=== PATIENT | male | born 1980 | race Caucasian/White ===

== ENCOUNTER 2018-02-10 17:47 | Emergency (ER) | payer MEDICAID ==
[~2018-02-10] VITALS: Ht 188 cm; Wt 88.5 kg
[2018-02-10] MEDS ORDERED: PIPERACILLIN-TAZOB 3.375GM 100 ML IV ONE (19:15)
[2018-02-10] MEDS ORDERED: KETOROLAC TROMETH 30 MG/ML 1ML VIAL IV ONE (19:15)
[2018-02-10 19:25] LABS: Basophils # (auto) 0 uL; Basophils % (auto) 0.4 % (0.0-2.0); Eosinophils # (auto) 0.1 uL; Hematocrit 47.6 % (41.0-53.0); Hemoglobin 16.4 g/dL (13.5-17.5); Lymphocytes # (auto) 1.8 uL; Lymphocytes % (auto) 19.7 % (10.0-50.0); Mean Corpuscular Hemoglobin 31.6 pg (28.0-32.0); Mean Corpuscular Hgb Conc. 34.5 g/dL (32.0-36.0); Mean Corpuscular Volume 91.6 fL (80.0-100.0); Monocytes # (auto) 0.7 uL; Monocytes % (auto) 7.2 % (0.0-12.0); Neutrophils # (auto) 6.5 uL; Neutrophils % (auto) 71.7 % (37.0-80.0); Nucleated Red Blood Cells % 0.1 %; Platelet Count (auto) 274 10^3/uL (140-450); Red Cell Distribution Width 13.7 % (11.8-14.3)
[2018-02-10 19:43] LABS: Albumin 3.8 g/dL (3.4-5.0); Calcium 8.8 mg/dL (8.5-10.1); Potassium 4.2 mmol/L (3.5-5.1)
[2018-02-10 19:46] LABS: BUN/Creatinine Ratio 15.7
[2018-02-10 19:48] LABS: Bilirubin, Total 0.7 mg/dL (0.2-1.0); Total Protein 7.3 g/dL (6.4-8.2)
[2018-02-11] MEDS ORDERED: cloNIDine HCL 0.1 MG TAB ONE (02:19)
[2018-02-11 02:24] VITALS: BP 179/117
[2018-02-11] MEDS ORDERED: cloNIDine HCL 0.1 MG TAB PO ONE (02:30)
== END 2018-02-11 02:44 | disposition short-term general hospital (02) ==
LOC: ER 17:47
DX: S61.247A Puncture wound with foreign body of left little finger without damage to nail, initial encounter (principal); I10 Essential (primary) hypertension; F17.210 Nicotine dependence, cigarettes, uncomplicated; X58.XXXA Exposure to other specified factors, initial encounter; Y93.89 Activity, other specified; Y99.8 Other external cause status; Y92.096 Garden or yard of other non-institutional residence as the place of occurrence of the external cause
CPT/HCPCS: 36415; 73130; 80053; 85025; 87040; 96365; 96366; 96375; 99285; J1885; J2543

== ENCOUNTER 2020-11-12 14:37 | Emergency (ER) | payer MEDICAID ==
[~2020-11-12] VITALS: Ht 188 cm; Wt 93.4 kg
[2020-11-12 18:00] VITALS: BP 147/98
[2020-11-12] MEDS ORDERED: KETOROLAC TROMETH 60MG/2ML VIAL IM ONE (18:15)
== END 2020-11-12 18:25 | disposition home or self-care (01) ==
LOC: ER 14:37
DX: S46.911A Strain of unspecified muscle, fascia and tendon at shoulder and upper arm level, right arm, initial encounter (principal); S76.911A Strain of unspecified muscles, fascia and tendons at thigh level, right thigh, initial encounter; S80.01XA Contusion of right knee, initial encounter; S40.811A Abrasion of right upper arm, initial encounter; I11.0 Hypertensive heart disease with heart failure; I50.9 Heart failure, unspecified; V49.9XXA Car occupant (driver) (passenger) injured in unspecified traffic accident, initial encounter; Y93.89 Activity, other specified; Y92.488 Other paved roadways as the place of occurrence of the external cause; Y99.8 Other external cause status
CPT/HCPCS: 71046; 73030; 73552; 96372; 99284; J1885

== ENCOUNTER → 2021-04-06 | Outpatient (CLI) | payer MEDICAID ==
[~2021-04-06] MED LIST: ALBUTEROL SULF 2.5 MG/0.5ML(0.5%) NEB SOLN ONE
== END | disposition home or self-care (01) ==
LOC: RT 09:44
PROVIDERS: ATTEND Internal Medicine Pulmonary Disease
DX: I51.7 Cardiomegaly (principal); I51.89 Other ill-defined heart diseases; I27.20 Pulmonary hypertension, unspecified; R06.00 Dyspnea, unspecified
CPT/HCPCS: 93306; 94060; 94727; 94729

== ENCOUNTER 2021-06-26 12:49 | Inpatient (IN) | payer MEDICAID ==
[~2021-06-26] VITALS: Ht 188 cm; Wt 99.3 kg
[2021-06-26] MEDS ORDERED: SODIUM CHLORIDE 0.9% 1,000 ML IVB ONE (13:30)
[2021-06-26] MEDS ORDERED: MORPHINE SULFATE 4 MG/ML SYR/VIAL IV ONE (13:30)
[2021-06-26] MEDS ORDERED: PANTOPRAZOLE 40 MG/10 ML VIAL INJ IV ONE (13:30)
[2021-06-26] MEDS ORDERED: ONDANSETRON HCL 4 MG/2 ML VIAL IV ONE (13:30)
[2021-06-26 15:51] LABS: Basophils # (auto) 0 10 ^3/uL (0-0.2); Eosinophils # (auto) 0 10 ^3/uL (0-0.8); Eosinophils % (auto) 0.1 % (0.0-7.0); Hemoglobin 20.2 g/dL (13.5-17.5); Lymphocytes # (auto) 0.9 10 ^3/uL (0.4-5.4); Lymphocytes % (auto) 12.4 % (10.0-50.0); Monocytes # (auto) 1.3 10 ^3/uL (0-1.3)
[2021-06-26 15:53] LABS: Basophils % (auto) 0.3 % (0.0-2.0); Hematocrit 57.7 % (41.0-53.0); Mean Corpuscular Hemoglobin 31.7 pg (28.0-32.0); Mean Corpuscular Volume 90.5 fL (80.0-100.0); Monocytes % (auto) 17.3 % (0.0-12.0); Neutrophils # (auto) 5.1 10 ^3/uL (1.6-8.6); Neutrophils % (auto) 69.9 % (37.0-80.0); Nucleated Red Blood Cells % 0.4 %; Red Blood Cells 6.38 10^6/uL (4.5-5.90); Red Cell Distribution Width 13.4 % (11.8-14.3); White Blood Cell 7.3 10^3/uL (4.4-10.8)
[2021-06-26 16:14] LABS: Albumin 3.7 g/dL (3.4-5.0); Calcium 8.8 mg/dL (8.5-10.1); Potassium 4.4 mmol/L (3.5-5.1)
[2021-06-26 16:17] LABS: BUN/Creatinine Ratio 23.4; Bilirubin, Total 0.7 mg/dL (0.2-1.0); Total Protein 7.8 g/dL (6.4-8.2)
[2021-06-26] MEDS ORDERED: cloNIDine HCL 0.1 MG TAB PO ONE (16:45)
[2021-06-26 16:55] LABS: Urine Bacteria NONE SEEN /hpf (None Seen); Urine Blood Negative /uL (Negative); Urine Hyaline Cast FEW /lpf (0 - 2); Urine Mucus MODERATE (None Seen); Urine Specific Gravity 1.037 (1.001-1.035); Urine WBC 1 /hpf (0 - 3)
[2021-06-26] MEDS ORDERED: HYDROcodone-ACET 5/325MG TAB PO PRN (18:30)
[2021-06-26] MEDS ORDERED: SODIUM CHLORIDE 0.9% 1,000 ML IV ONE ×2 (18:30)
[2021-06-27] MEDS ORDERED: hydrALAZINE HCL 20 MG/ML VL IV ONE (05:45)
[2021-06-27 06:03] LABS: White Blood Cell 5.2 10^3/uL (4.4-10.8)
[2021-06-27 06:06] LABS: Hemoglobin 19.1 g/dL (13.5-17.5); Mean Corpuscular Hemoglobin 31.1 pg (28.0-32.0); Mean Corpuscular Hgb Conc. 33.9 g/dL (32.0-36.0); Mean Corpuscular Volume 91.6 fL (80.0-100.0); Red Blood Cells 6.15 10^6/uL (4.5-5.90); Red Cell Distribution Width 13.4 % (11.8-14.3)
[2021-06-27 06:13] LABS: Hematocrit 56.4 % (41.0-53.0)
[2021-06-27 06:14] LABS: Basophils % (manual) 0 (0.0-2.0); Blast Cells 0; Eosinophils % (manual) 0 (0-7); Metamyelocytes % 0; Myelocytes % 0; Promyelocytes % 0; Reactive Lymphocytes 0
[2021-06-27 06:20] LABS: BUN/Creatinine Ratio 26.5; Calcium 9.3 mg/dL (8.5-10.1); Potassium 4.5 mmol/L (3.5-5.1)
[2021-06-27 07:35] LABS: Band Neutrophils % (manual) 19; Lymphocytes % (manual) 18 (10.0-50.0); Monocytes % (manual) 25 (0-12)
[2021-06-27] MEDS ORDERED: GASTROGRAFIN 120 ML SOL ONE (09:27)
[2021-06-27 09:37] VITALS: BP 151/115
[2021-06-27] MEDS: ONDANSETRON HCL 4 MG/2 ML VIAL IV PRN ×2 (09:58→16:40)
[2021-06-27] MEDS: MORPHINE SULFATE INJECTION 2 MG/ML SYRG IV PRN ×3 (10:04→21:32)
[2021-06-27] MEDS ORDERED: GABA300C10 PO (10:52)
[2021-06-27] MEDS ORDERED: FURO40TA4 PO (10:52)
[2021-06-27] MEDS ORDERED: AMLO-496 PO (10:52)
[2021-06-27] MEDS ORDERED: ENAL20TA8 PO (10:52)
[2021-06-27] MEDS ORDERED: HYDR25TA87 PO (10:52)
[2021-06-27] MEDS ORDERED: PANT40TA2 PO (10:54)
[2021-06-27 13:00] VITALS: BP 161/130
[2021-06-27 17:02] VITALS: BP 153/100
[2021-06-27 22:17] VITALS: BP 144/100
[2021-06-28 05:10] VITALS: BP 151/112
[2021-06-28 06:05] LABS: Hematocrit 45.1 % (41.0-53.0); Hemoglobin 15.4 g/dL (13.5-17.5); Mean Corpuscular Hemoglobin 31.3 pg (28.0-32.0); Mean Corpuscular Volume 91.9 fL (80.0-100.0); Red Blood Cells 4.91 10^6/uL (4.5-5.90); Red Cell Distribution Width 13.4 % (11.8-14.3); White Blood Cell 3.8 10^3/uL (4.4-10.8)
[2021-06-28 06:34] LABS: Basophils % (manual) 0 (0.0-2.0); Blast Cells 0; Metamyelocytes % 0; Myelocytes % 0; Promyelocytes % 0; Reactive Lymphocytes 0
[2021-06-28 06:38] LABS: Potassium 4.2 mmol/L (3.5-5.1)
[2021-06-28 06:44] LABS: BUN/Creatinine Ratio 30.5; Calcium 8.1 mg/dL (8.5-10.1)
[2021-06-28 06:49] LABS: Eosinophils % (manual) 1 (0-7)
[2021-06-28 06:50] LABS: Band Neutrophils % (manual) 19; Lymphocytes % (manual) 24 (10.0-50.0); Monocytes % (manual) 19 (0-12)
[2021-06-28 09:17] VITALS: BP 176/106
[2021-06-28] MEDS ORDERED: hydrALAZINE HCL 20 MG/ML VL IV PRN (09:30)
[2021-06-28] MEDS ORDERED: PANTOPRAZOLE 40 MG/10 ML VIAL INJ IV SCH (10:00)
[2021-06-28] MEDS: ONDANSETRON HCL 4 MG/2 ML VIAL IV PRN (10:23)
[2021-06-28] MEDS: MORPHINE SULFATE INJECTION 2 MG/ML SYRG IV PRN (10:26)
[2021-06-28 12:22] VITALS: BP 161/98
[2021-06-28 16:17] VITALS: BP 205/117
[2021-06-28] MEDS: ENALAPRILAT 1.25 MG/ML-1ML VIAL IV PRN ×2 (16:34→22:44)
[2021-06-28 22:43] VITALS: BP 168/123
[2021-06-29 05:00] VITALS: BP 169/89
[2021-06-29 05:34] LABS: Basophils # (auto) 0 10 ^3/uL (0-0.2); Basophils % (auto) 0.8 % (0.0-2.0); Eosinophils # (auto) 0.1 10 ^3/uL (0-0.8); Eosinophils % (auto) 2.5 % (0.0-7.0); Hematocrit 43.8 % (41.0-53.0); Hemoglobin 14.9 g/dL (13.5-17.5); Lymphocytes % (auto) 21.2 % (10.0-50.0); Mean Corpuscular Volume 91.1 fL (80.0-100.0); Monocytes # (auto) 0.8 10 ^3/uL (0-1.3); Monocytes % (auto) 15.9 % (0.0-12.0); Neutrophils # (auto) 2.8 10 ^3/uL (1.6-8.6); Neutrophils % (auto) 59.6 % (37.0-80.0); Nucleated Red Blood Cells % 0.1 %; Red Cell Distribution Width 12.9 % (11.8-14.3); White Blood Cell 4.8 10^3/uL (4.4-10.8)
[2021-06-29 05:54] LABS: BUN/Creatinine Ratio 16.1; Calcium 8.1 mg/dL (8.5-10.1)
[2021-06-29] MEDS: ENALAPRILAT 1.25 MG/ML-1ML VIAL IV PRN (06:31)
== END 2021-06-29 09:30 | disposition left against medical advice (07) | DRG 247 ==
LOC: ER 12:49 → OVERFLOW 18:26 → CENTRAL 06-27 08:51 → WEST WING 06-29 07:53
PROVIDERS: ADMIT Internal Medicine; ATTEND Internal Medicine
DX: K56.609 Unspecified intestinal obstruction, unspecified as to partial versus complete obstruction (principal); I11.0 Hypertensive heart disease with heart failure; I50.9 Heart failure, unspecified; F10.10 Alcohol abuse, uncomplicated; K80.20 Calculus of gallbladder without cholecystitis without obstruction; F15.10 Other stimulant abuse, uncomplicated; F12.90 Cannabis use, unspecified, uncomplicated; F17.210 Nicotine dependence, cigarettes, uncomplicated; Z53.29 Procedure and treatment not carried out because of patient's decision for other reasons; Z20.822 Contact with and (suspected) exposure to COVID-19; F32.A Depression, unspecified; K21.9 Gastro-esophageal reflux disease without esophagitis; Z82.49 Family history of ischemic heart disease and other diseases of the circulatory system
CPT/HCPCS: 36415; 74018; 74176; 74250; 80048; 80053; 81001; 82150; 83690; 85007; 85025; 85027; 87081; 87426; 93005; 96361; 96374; 96375; C9113; G0378; J2405

== ENCOUNTER 2022-03-25 09:20 | Emergency (ER) | payer MEDICAID ==
[~2022-03-25] VITALS: Ht 188 cm; Wt 90.5 kg
[~2022-03-25 09:20] MED LIST changes: -ALBUTEROL SULF 2.5 MG/0.5ML(0.5%) NEB SOLN ONE; +AMLO-496 PO; +ENAL20TA8 PO; +FURO40TA4 PO; +GABA300C10 PO; +HYDR25TA87 PO; +PANT40TA2 PO
[2022-03-25] MEDS ORDERED: cloNIDine HCL 0.1 MG TAB PO ONE (09:45)
[2022-03-25 09:52] LABS: Basophils # (auto) 0 10 ^3/uL (0-0.2); Basophils % (auto) 0.6 % (0.0-2.0); Eosinophils # (auto) 0.1 10 ^3/uL (0-0.8); Monocytes # (auto) 0.5 10 ^3/uL (0-1.3)
[2022-03-25 09:54] LABS: Eosinophils % (auto) 1.3 % (0.0-7.0); Hemoglobin 18.1 g/dL (13.5-17.5); Lymphocytes # (auto) 1.5 10 ^3/uL (0.4-5.4); Lymphocytes % (auto) 28.3 % (10.0-50.0); Mean Corpuscular Hgb Conc. 34.1 g/dL (32.0-36.0); Mean Corpuscular Volume 90.8 fL (80.0-100.0); Monocytes % (auto) 8.9 % (0.0-12.0); Neutrophils # (auto) 3.2 10 ^3/uL (1.6-8.6); Neutrophils % (auto) 60.9 % (37.0-80.0); Nucleated Red Blood Cells % 0.2 %; Red Blood Cells 5.84 10^6/uL (4.5-5.90); Red Cell Distribution Width 13.5 % (11.8-14.3); White Blood Cell 5.3 10^3/uL (4.4-10.8)
[2022-03-25 10:08] LABS: Albumin 4.3 g/dL (3.4-5.0); Calcium 8.8 mg/dL (8.5-10.1); Magnesium 2.5 mg/dL (1.6-2.6); Potassium 4.6 mmol/L (3.5-5.1)
[2022-03-25 10:10] LABS: Partial Thromboplastin Time 27.7 sec (24.6-33.4)
[2022-03-25 10:11] LABS: BUN/Creatinine Ratio 15.3; Bilirubin, Total 0.5 mg/dL (0.2-1.0); Total Protein 7.5 g/dL (6.4-8.2)
[2022-03-25] MEDS ORDERED: LABETALOL HCL 5 MG/ML 4ML SYRINGE IV ONE (10:30)
[2022-03-25 12:00] VITALS: BP 153/109
[2022-03-25] MEDS ORDERED: NEBI5TAB2 PO (12:26)
[2022-03-25] MEDS ORDERED: AML5T PO (12:26)
[2022-03-25] MEDS ORDERED: OLME40TA26 PO (12:26)
[2022-03-25] MEDS ORDERED: VALSARTAN 80 MG TAB PO ONE (12:30)
== END 2022-03-25 12:55 | disposition home or self-care (01) ==
LOC: ER 09:20
DX: I11.0 Hypertensive heart disease with heart failure (principal); I50.9 Heart failure, unspecified; K21.9 Gastro-esophageal reflux disease without esophagitis; E78.5 Hyperlipidemia, unspecified; Z91.14 Patient's other noncompliance with medication regimen; Z87.891 Personal history of nicotine dependence; Z79.899 Other long term (current) drug therapy; Z91.09 Other allergy status, other than to drugs and biological substances
CPT/HCPCS: 36415; 71046; 80053; 83735; 83880; 84484; 85025; 85610; 85730; 93005; 96374; 99285; J3490

== ENCOUNTER 2022-05-10 05:25 | Emergency (ER) | payer MEDICAID ==
[~2022-05-10] VITALS: Ht 188 cm; Wt 86.4 kg
[~2022-05-10 05:25] MED LIST changes: +AML5T PO; +NEBI5TAB2 PO; +OLME40TA26 PO
[2022-05-10] MEDS ORDERED: cloNIDine HCL 0.1 MG TAB PO ONE (07:00)
[2022-05-10 07:06] LABS: Eosinophils # (auto) 0.1 10 ^3/uL (0-0.8); Eosinophils % (auto) 0.6 % (0.0-7.0); White Blood Cell 8.1 10^3/uL (4.4-10.8)
[2022-05-10 07:08] LABS: Basophils # (auto) 0.1 10 ^3/uL (0-0.2); Basophils % (auto) 0.8 % (0.0-2.0); Hematocrit 53.2 % (41.0-53.0); Lymphocytes # (auto) 1.4 10 ^3/uL (0.4-5.4); Mean Corpuscular Hemoglobin 32.3 pg (28.0-32.0); Mean Corpuscular Hgb Conc. 35.7 g/dL (32.0-36.0); Mean Corpuscular Volume 90.5 fL (80.0-100.0); Monocytes # (auto) 0.6 10 ^3/uL (0-1.3); Monocytes % (auto) 7.9 % (0.0-12.0); Neutrophils % (auto) 73.7 % (37.0-80.0); Red Blood Cells 5.88 10^6/uL (4.5-5.90); Red Cell Distribution Width 13.4 % (11.8-14.3)
[2022-05-10] MEDS ORDERED: ASPirin 325 MG TAB PO ONE (07:30)
[2022-05-10 07:44] LABS: Albumin 4.5 g/dL (3.4-5.0); BUN/Creatinine Ratio 18.3; Bilirubin, Total 0.6 mg/dL (0.2-1.0); Calcium 10.1 mg/dL (8.5-10.1); Total Protein 7.8 g/dL (6.4-8.2)
[2022-05-10 10:50] VITALS: BP 156/98
== END 2022-05-10 10:51 | disposition home or self-care (01) ==
LOC: ER 05:25
DX: I16.0 Hypertensive urgency (principal); F15.10 Other stimulant abuse, uncomplicated; I11.0 Hypertensive heart disease with heart failure; I50.9 Heart failure, unspecified; K21.9 Gastro-esophageal reflux disease without esophagitis; E78.5 Hyperlipidemia, unspecified; F17.210 Nicotine dependence, cigarettes, uncomplicated; Z79.899 Other long term (current) drug therapy; Z91.09 Other allergy status, other than to drugs and biological substances
CPT/HCPCS: 36415; 71045; 80053; 83880; 84484; 85025; 85379